=== PATIENT | male | born 1990 ===

== ENCOUNTER 2017-08-09 10:28 | Outpatient (CLI) | payer OTHER ==
[~2017-08-09] VITALS: Ht 167.6 cm; Wt 72.6 kg
[2017-08-09] MEDS ORDERED: FLONASE16 GM NASAL (12:51)
== END 2017-08-09 10:50 | disposition home or self-care (01) ==
LOC: OFIC 805 10:28
DX: H69.82 Other specified disorders of Eustachian tube, left ear (principal); J31.0 Chronic rhinitis; H93.11 Tinnitus, right ear